=== PATIENT | female | born 1930 | race Caucasian/White ===

== ENCOUNTER 2020-03-14 15:27 | Emergency (ER) | payer OTHER ==
[~2020-03-14] VITALS: Ht 157.5 cm; Wt 70.8 kg
[2020-03-14] MEDS ORDERED: METFORMIN HCL500 MG (15:46)
[2020-03-14] MEDS ORDERED: GLIMEPIRIDE2 MG (15:46)
[2020-03-14] MEDS ORDERED: LEVOTHYROXINE25 MCG (15:46)
[2020-03-14] MEDS ORDERED: TRICOR145 MG (15:46)
[2020-03-14] MEDS ORDERED: EFFEXOR XR75 MG (15:47)
[2020-03-14] MEDS ORDERED: HYZAAR 100-12.1 EACH (15:47)
[2020-03-14] MEDS ORDERED: ALPRAZOLAM XR2 MG (15:47)
[2020-03-14] MEDS ORDERED: PRILOSEC OTC20 MG (15:48)
[2020-03-14] MEDS ORDERED: GRALISE600 MG (15:48)
== END 2020-03-14 18:32 | disposition home or self-care (01) ==
LOC: ER 15:27
DX: S61.022A Laceration with foreign body of left thumb without damage to nail, initial encounter (principal); S50.812A Abrasion of left forearm, initial encounter; W01.198A Fall on same level from slipping, tripping and stumbling with subsequent striking against other object, initial encounter; Y93.89 Activity, other specified; Y92.017 Garden or yard in single-family (private) house as the place of occurrence of the external cause; Y99.8 Other external cause status

== ENCOUNTER 2020-03-21 10:42 | Emergency (ER) | payer OTHER ==
[~2020-03-21] VITALS: Ht 157.5 cm; Wt 68.0 kg
[~2020-03-21 10:42] MED LIST: ALPRAZOLAM XR2 MG; EFFEXOR XR75 MG; GLIMEPIRIDE2 MG; GRALISE600 MG; HYZAAR 100-12.1 EACH; LEVOTHYROXINE25 MCG; METFORMIN HCL500 MG; PRILOSEC OTC20 MG; TRICOR145 MG
[2020-03-21] MEDS ORDERED: MUPIROCIN15 GM TOP (12:30)
== END 2020-03-21 15:15 | disposition home or self-care (01) ==
LOC: ER 10:42
DX: Z48.02 Encounter for removal of sutures (principal)